=== PATIENT | female | born 2000 | race Caucasian/White ===

== ENCOUNTER → 2019-05-03 | Outpatient (CLI) | payer OTHER ==
[2019-05-03 14:29] VITALS: BP 127/92; PULSE 89; TEMP 98.7; BMI 43.4
[2019-05-03 15:31] LABS: HCT 37.2 % (34.0-46.0); HGB 12.5 gm/dL (11.4-16.0); MCH 28.7 pg (25.0-35.0); MCHC 33.7 g/dL (31.0-37.0); MCV 85.1 fL (80.0-100.0); Mean Platelet Volume 6.6; Platelet Count 297 k/uL (150-450); RBC 4.37 m/uL (3.80-5.40); WBC 9.7 k/uL (4.0-11.0)
[2019-05-03 19:43] LABS: Ferritin 35.3 ng/mL (10.0-291.0)
[2019-05-03 19:45] LABS: % Iron Saturation 7.85 (12.00-45.00); African American GFR (CKD) 144.6 (60.0-200.0); Albumin 4.6 g/dL (3.80-4.90); Albumin/Globulin Ratio 1.92 (1.60-3.17); Anion Gap 10.6 mmol/L (4.00-12.00); BUN/Creat Ratio 17.14 Ratio (12.00-20.00); Calcium 10.1 mg/dL (8.7-10.3); Carbon Dioxide 26.4 mmol/L (21.6-31.8); Globulin 2.4 g/dL (1.6-3.3); Non-African American GFR(CKD) 124.7 (60.0-200.0); Potassium 4.1 mmol/L (3.5-5.5); Total Bilirubin 0.2 mg/dL (0.2-1.2)
--- NOTE | 2019-05-03 21:07 | P.HPBAR ---
Bariatric H&P - History & Physicial H&P Date: 05/03/19 History & Physicial: Visit/CC: initial clinic visit Patient initial contact: Initial weight: Initial weight in pounds: Height: 5 ft 3.5 in Initial BMI: Last weight: Current weight: 112.945 kg Current weight in pounds: 249.00 Current BMI: 43.4 [place] body weight (based on NIH guidelines): 53.297 kg Excess body weight loss: The patient is a 18 year-old F who presents for Bariatric Assessment. 18-year-old female comes today complaining of morbid obesity. The patient states she is supper with us for the majority of her life thus far. Suffers from hypertension, asthma, GERD. She is interested in sleeve gastrectomy. Went to a recent seminar. BMI 43.4. Denies dysphagia. No DVT. Just now starting her supervised weight loss program. Review of Systems The patient denies any acute changes in vision or hearing, no dysphagia or odynophagia, no chest pain or shortness of breath, no dysuria or hematuria, no headache, no runny nose, no rectal bleeding or melena, no unexplained weight loss Past Medical History Past Medical History: Asthma, Hypertension Additional Past Medical History / Comment(s): PCOD History of Any Multi-Drug Resistant Organisms: None Reported Past Surgical History: No Surgical Hx Reported Past Anesthesia/Blood Transfusion Reactions: No Reported Reaction Smoking Status: Never smoker Surgical - Exam Vital Signs Temp Pulse BP 98.7 F 89 127/92 05/03/19 14:23 05/03/19 14:23 05/03/19 14:23 Physical exam: General: Well-developed, well-nourished HEENT: Normocephalic, sclerae nonicteric Abdomen: Nontender, nondistended Extremities: No edema Neuro: Alert and oriented Results - Labs 05/03/19 15:08 05/03/19 15:08 Abnormal Lab Results - Last 24 Hours (Table) 05/03/19 Range/Units 15:08 Iron 30 L (50-170) ug/dL % Saturation 7.85 L (12.00-45.00) ALT 51 H (8-44) U/L Vitamin D 25-Hydroxy 18.4 L (30.0-100.0) ng/mL Diabetes panel 05/03/19 Range/Units 15:08 Sodium 141 (135-145) mmol/L Potassium 4.1 (3.5-5.5) mmol/L Chloride 104 (96-109) mmol/L Carbon Dioxide 26.4 (21.6-31.8) mmol/L BUN 12.0 (9.0-27.0) mg/dL Creatinine 0.7 (0.6-1.5) mg/dL Glucose 86 (70-110) mg/dL Calcium 10.1 (8.7-10.3) mg/dL AST 31 (13-35) U/L ALT 51 H (8-44) U/L Alkaline Phosphatase 125 (41-126) U/L Total Protein 7.0 (6.2-8.2) g/dL Albumin 4.60 (3.80-4.90) g/dL Thyroid panel 05/03/19 Range/Units 15:08 TSH 3.660 (0.350-5.500) uIU/mL Calcium panel 05/03/19 Range/Units 15:08 Calcium 10.1 (8.7-10.3) mg/dL Albumin 4.60 (3.80-4.90) g/dL Pituitary panel 05/03/19 Range/Units 15:08 Sodium 141 (135-145) mmol/L Potassium 4.1 (3.5-5.5) mmol/L Chloride 104 (96-109) mmol/L Carbon Dioxide 26.4 (21.6-31.8) mmol/L BUN 12.0 (9.0-27.0) mg/dL Creatinine 0.7 (0.6-1.5) mg/dL Glucose 86 (70-110) mg/dL Calcium 10.1 (8.7-10.3) mg/dL TSH 3.660 (0.350-5.500) uIU/mL Adrenal panel 05/03/19 Range/Units 15:08 Sodium 141 (135-145) mmol/L Potassium 4.1 (3.5-5.5) mmol/L Chloride 104 (96-109) mmol/L Carbon Dioxide 26.4 (21.6-31.8) mmol/L BUN 12.0 (9.0-27.0) mg/dL Creatinine 0.7 (0.6-1.5) mg/dL Glucose 86 (70-110) mg/dL Calcium 10.1 (8.7-10.3) mg/dL Total Bilirubin 0.2 (0.2-1.2) mg/dL AST 31 (13-35) U/L ALT 51 H (8-44) U/L Alkaline Phosphatase 125 (41-126) U/L Total Protein 7.0 (6.2-8.2) g/dL Albumin 4.60 (3.80-4.90) g/dL Bariatric Assessment & Plan (1) Morbid obesity with BMI of 40.0-44.9, adult Narrative/Plan: 18-year-old female suffering from hypertension and asthma and reflux. Options reviewed in detail with the patient. She remains interested in sleeve gastrectomy. We'll continue supervised weight loss program. Plan EGD in approximately 4 months. Likely will proceed with sleeve gastrectomy following that. Status: Acute Bariatric Checklist Checklist: Plan: Checklist: EGD: 1. Hiatal hernia: 2. H. Pylori: HgbA1c: Vitamin D: Smoking: Never smoker Primary care physician referral: Psychiatry clearance: Cardiology clearance: Sleep study: Diet journal: VTE risk score: VTE risk level: Rehab needs at discharge:
== END | disposition home or self-care (01) ==
LOC: BARWHC3 14:03 → EDAGE 15:00
PROVIDERS: ATTEND Surgery
DX: E66.01 Morbid (severe) obesity due to excess calories (principal); I10 Essential (primary) hypertension; J45.909 Unspecified asthma, uncomplicated; K21.9 Gastro-esophageal reflux disease without esophagitis; Z68.41 Body mass index [BMI] 40.0-44.9, adult; D50.8 Other iron deficiency anemias; E44.0 Moderate protein-calorie malnutrition; E55.9 Vitamin D deficiency, unspecified
CPT/HCPCS: 80053; 82728; 83540; 83550; 84443; 85027; 82306; 83036; 93005; 36415; G0463; 99201

== ENCOUNTER 2019-08-24 08:38 | Day surgery (SDC) | payer OTHER ==
[2019-08-22 09:47] VITALS: BMI 42.9
[2019-08-24 08:59] VITALS: TEMP 97.3
[2019-08-24 10:39] VITALS: BP 132/82; PULSE 92; RESP 18
== END 2019-08-24 11:34 | disposition home or self-care (01) ==
LOC: ORWHC2ENDO 08:38
PROVIDERS: ATTEND Surgery
DX: K29.50 Unspecified chronic gastritis without bleeding (principal); K21.0 Gastro-esophageal reflux disease with esophagitis; K44.9 Diaphragmatic hernia without obstruction or gangrene; I10 Essential (primary) hypertension; J45.909 Unspecified asthma, uncomplicated; F39 Unspecified mood [affective] disorder; F41.9 Anxiety disorder, unspecified; E28.2 Polycystic ovarian syndrome; Z79.899 Other long term (current) drug therapy; Z91.048 Other nonmedicinal substance allergy status
CPT/HCPCS: 81025; 88305; 43239; J2001; J2704

== ENCOUNTER → 2019-11-12 | Outpatient (CLI) | payer OTHER ==
[2019-11-12 11:47] VITALS: BMI 42.5
== END | disposition home or self-care (01) ==
LOC: BARWHC3 08:50
PROVIDERS: ATTEND Surgery
DX: E66.01 Morbid (severe) obesity due to excess calories (principal); Z68.41 Body mass index [BMI] 40.0-44.9, adult
CPT/HCPCS: 97804

== ENCOUNTER → 2019-11-13 | Outpatient (CLI) | payer OTHER ==
[2019-11-13 13:26] VITALS: BP 134/96; PULSE 88; RESP 16; TEMP 97.9; BMI 42.5
--- NOTE | 2019-11-13 15:24 | P.BASOAP ---
Subjective Progress Note Date: 11/13/19 Principal diagnosis: Morbid obesity Patient returns for evaluation. Patient is preop and underwent recent EGD in August. Patient was found to have a moderate hiatal hernia. She is not scheduled for her sleeve gastrectomy yet. Psychiatric evaluate tomorrow. Last PCP visit later this month. Her wedding is in March. Applications with history of hypertension and asthma and reflux. Doing well on antiacids that were started after EGD. No further reflux presently. Objective - Vital Signs Vital signs: Vital Signs Temp 97.9 F 11/13/19 13:24 Pulse 88 11/13/19 13:24 Resp 16 11/13/19 13:24 BP 134/96 11/13/19 13:24 Pulse Ox Intake & Output 11/12/19 11/13/19 11/13/19 18:59 06:59 18:59 Weight 110.677 kg - Exam Abdomen: Soft, nontender, nondistended Assessment/Plan (1) Morbid obesity with BMI of 40.0-44.9, adult Narrative/Plan: 19-year-old female with morbid obesity and associated comorbidities. We'll proceed with laparoscopic sleeve gastrectomy with repair hiatal hernia in the next several weeks. The risks of bleeding, infection, stenosis, stricture, leak, abscess, fistula formation, peritonitis, poor weight loss, reflux, vomiting, conversion to an open procedure, aborting sleeve gastrectomy, MS, PE, DVT, and were discussed. The patient understands and wishes to proceed. Plan: Date: 11/13/19 Initial Weight: Initial BMI: Current Weight: 110.677 kg Current BMI: 42.5 Type of Surgery: Total Volume in Band: Previous Volume: Volume Removed: Volume Added: Band Size:
== END | disposition home or self-care (01) ==
LOC: BARWHC3 13:06
PROVIDERS: ATTEND Surgery
DX: E66.01 Morbid (severe) obesity due to excess calories (principal); Z68.41 Body mass index [BMI] 40.0-44.9, adult; K44.9 Diaphragmatic hernia without obstruction or gangrene
CPT/HCPCS: 99211

== ENCOUNTER → 2020-03-04 | Outpatient (CLI) | payer OTHER ==
[2020-03-04 10:48] LABS: Basophils # (A) 0.1 k/uL (0-0.2); Basophils % (A) 1 %; Eosinophils # (A) 0.4 k/uL (0-0.7); Eosinophils % (A) 4 %; HCT 36.6 % (34.0-46.0); HGB 12.1 gm/dL (11.4-16.0); Lymphocytes # (A) 2.2 k/uL (1.0-4.8); Lymphocytes % (A) 24 %; MCH 28.3 pg (25.0-35.0); MCHC 33.1 g/dL (31.0-37.0); MCV 85.5 fL (80.0-100.0); Mean Platelet Volume 8.5; Monocytes # (A) 0.3 k/uL (0-1.0); Monocytes % (A) 4 %; Neutrophils # (A) 6.1 k/uL (1.3-7.7); Neutrophils % (A) 66 %; Platelet Count 243 k/uL (150-450); RBC 4.28 m/uL (3.80-5.40); WBC 9.2 k/uL (3.8-10.6)
[2020-03-04 11:00] LABS: ALT 23 U/L (4-34); AST 26 U/L (14-36); African American GFR (CKD) >90 (>60 ml/min/1.73 sqM); Albumin 4.4 g/dL (3.5-5.0); Alkaline Phosphatase 72 U/L (38-126); Anion Gap 9 mmol/L; Blood Urea Nitrogen 20 mg/dL (7-17); Calcium 9.9 mg/dL (8.4-10.2); Carbon Dioxide 26 mmol/L (22-30); Chloride 103 mmol/L (98-107); Glucose 99 mg/dL (74-99); Non-African American GFR(CKD) >90 (>60 ml/min/1.73 sqM); Potassium 4.3 mmol/L (3.5-5.1); Sodium 138 mmol/L (137-145); Total Bilirubin 0.4 mg/dL (0.2-1.3); Total Protein 7.6 g/dL (6.3-8.2)
== END | disposition home or self-care (01) ==
LOC: LABWHC1 10:16
PROVIDERS: ATTEND Surgery
DX: Z01.818 Encounter for other preprocedural examination (principal)
CPT/HCPCS: 36415; 80053; 85025

== ENCOUNTER 2020-03-07 06:56 | Inpatient (IN) | payer OTHER ==
[~2020-03-07 06:56] MED LIST: ACETAMINOPHEN TAB 500 MG TAB PO ONE; DEXAMETHASONE SOD PHOSPHATE 10 MG/ML 1 ML VIAL IV ONE; ENOXAPARIN 40 MG/0.4 ML SYRINGE SQ ONE; LIDOCAINE 1% (10MG/ML) FOR IV START INTRADERMA PRN; MIDAZOLAM 2 MG/2 ML VIAL IV PRN; ONDANSETRON 4 MG/2 ML VIAL IVP ONE
[2020-03-07] MEDS: LACTATED RINGERS 1,000 ML IV SCH (07:38)
--- NOTE | 2020-03-07 07:51 | P.GSHP ---
History of Present Illness H&P Date: 03/07/20 Chief Complaint: Morbid obesity, hiatal hernia 19-year-old female here today for elective sleeve gastrectomy. Patient was seen in the office initially in April of last year. Patient with history of hypertension and asthma GERD. Recent EGD showed gastritis, esophagitis, and moderate hiatal hernia. Initial BMI 43.4. Denies history of DVT or dysphagia. Past Medical History Past Medical History: Asthma, GERD/Reflux, Hypertension Additional Past Medical History / Comment(s): PCOS History of Any Multi-Drug Resistant Organisms: None Reported Past Surgical History: No Surgical Hx Reported Additional Past Surgical History / Comment(s): EGD Past Anesthesia/Blood Transfusion Reactions: Motion Sickness Smoking Status: Never smoker - Past Family History Mother Family Medical History: No Reported History Medications and Allergies Home Medications Medication Instructions Recorded Confirmed Type Labetalol [Trandate] 200 mg PO BID 04/24/19 03/03/20 History Medroxyprogesterone Acetate 5 mg PO DAILY 04/24/19 03/03/20 History [Provera] Montelukast [Singulair] 10 mg pe PO DAILY 04/24/19 03/03/20 History buPROPion HCL [Wellbutrin SR] 150 mg PO DAILY 04/24/19 03/03/20 History Omeprazole [PriLOSEC] 20 mg PO -BRKFST #90 cap 08/24/19 03/03/20 Rx Albuterol Inhaler [Ventolin Hfa 2 puff INHALATION RT-QID PRN 03/03/20 03/07/20 History Inhaler] Albuterol Nebulized [Ventolin 2.5 mg INHALATION Q6H PRN 03/03/20 03/07/20 History Nebulized] Loratadine [Claritin] 10 mg PO DAILY 03/03/20 03/03/20 History Allergies Allergy/AdvReac Type Severity Reaction Status Date / Time mold Allergy Dyspnea Verified 03/03/20 15:04 Surgical - Exam Physical exam: General: Well-developed, well-nourished HEENT: Normocephalic, sclerae nonicteric Abdomen: Nontender, nondistended Extremities: No edema Neuro: Alert and oriented Assessment and Plan (1) Morbid obesity with BMI of 40.0-44.9, adult Narrative/Plan: Will proceed with laparoscopic sleeve gastrectomy with repair hiatal hernia. The risks of bleeding, infection, stenosis, stricture, leak, abscess, fistula formation, peritonitis, poor weight loss, reflux, vomiting, conversion to an open procedure, aborting sleeve gastrectomy, ME, PE, DVT, and were discussed. The patient understands and wishes to proceed. Current Visit: No Status: Acute Code(s): E66.01 - MORBID (SEVERE) OBESITY DUE TO EXCESS CALORIES; Z68.41 - BODY MASS INDEX (BMI) 40.0-44.9, ADULT SNOMED Code(s): 643169604
[2020-03-07] MEDS ORDERED: ROCURONIUM 10 MG/ML (5 ML VIAL) IV ONE (09:10)
[2020-03-07] MEDS ORDERED: MIDAZOLAM 2 MG/2 ML VIAL ONE (09:10)
[2020-03-07] MEDS ORDERED: GLYCOPYRROLATE 0.2 MG/ML 2 ML VIAL ONE (09:10)
[2020-03-07] MEDS ORDERED: NEOSTIGMINE 1 MG/ML 10 ML VIAL ONE (09:10)
[2020-03-07] MEDS ORDERED: ONDANSETRON 4 MG/2 ML VIAL ONE (09:10)
[2020-03-07] MEDS ORDERED: PROPOFOL 10 MG/ML 20 ML VIAL IV ONE (09:10)
[2020-03-07] MEDS ORDERED: SUCCINYLCHOLINE CHLORIDE 100 MG/5 ML SYR IV ONE (09:10)
[2020-03-07] MEDS ORDERED: fentaNYL (PF) 50 MCG/ML 2 ML AMP ONE (09:10)
[2020-03-07] MEDS ORDERED: HYDROmorphone (PF) 1 MG/ML ONE (09:10)
[2020-03-07] MEDS ORDERED: LIDOCAINE 1% INJ 10MG/ML (20 ML MDV) ONE (09:10)
[2020-03-07] MEDS ORDERED: BUPIVACAINE (PF) 0.25% 30 ML VIAL SQ ONE ×2 (09:47→09:51)
[2020-03-07] MEDS ORDERED: LACTATED RINGERS 1,000 ML IV ONE (09:51)
[2020-03-07] MEDS: HYDROmorphone 0.5 MG/0.5 ML SYRINGE IVP PRN ×5 (10:55→12:25)
[2020-03-07] MEDS ORDERED: KETOROLAC 15 MG/ML 1 ML VIAL IVP ONE (11:10)
[2020-03-07] MEDS ORDERED: NALOXONE 0.4 MG/ML 1 ML VIAL IV PRN (11:29)
--- NOTE | 2020-03-07 11:37 | P.OP ---
Date of Procedure: 03/07/20 Procedure(s) Performed: PREOPERATIVE DIAGNOSIS: Morbid obesity, GERD, hypertension, asthma, hiatal hernia POSTOPERATIVE DIAGNOSIS: Same PROCEDURE: Laparoscopic sleeve gastrectomy with repair hiatal hernia SURGEON: Es EBL: Minimal ANESTHESIA: General COMPLICATIONS: None OPERATIVE PROCEDURE: Patient was placed in the operating table in the supine position. She was placed under general anesthesia at that time. The abdomen was prepped and draped in sterile fashion after the patient was placed in lithot arcelia. A 5 mm optical trocar was used to enter the abdominal cavity in the left upper quadrant. Insufflation took place to 15 millimeters mercury. An additional right subxiphoid 5 mm trocar was then placed under direct relation and then removed. 2 additional 5 mm trochars were placed in the right upper quadrant and left upper quadrant under direct visualization and a 15 mm trocar in the infraumbilical location. The liver was retracted using a medium Everett liver retractor through the right subxiphoid trocar site. The hiatus was inspected. The patient had a moderate sized hiatal hernia. Circumferentially the phrenoesophageal ligament was incised identifying the actual defect. The right diaphragmatic crura was well visualized. I was able to bluntly dissect and visualize the left diaphragmatic crura. At that point I moved to the mid aspect of the greater curvature the stomach. The short gastric vasculature was divided using a LigaSure device proximally. I then switched and divided the short gastrics distally to a 3-4 cm from the pylorus. The dissection took place up to the left diaphragmatic crura at that point. The posterior short gastrics were likewise divided using the LigaSure device. From this view we were able to fully dissect the left crura. Once the stomach was fully mobilized the blunt tipped 40-Slovenian bougie dilator was advanced into the stomach and advanced all the way to the prepyloric location. A black echelon 60 stapler with seam guard was utilized and fired tangentially across the antrum taking care to avoid narrowing at the incisura angularis. Subsequent firings of the stapler took place. A total of 4 green echelon 60 staplers with seam guard took place proximally staying on the outer edge of our dilator. Once we reached the most proximal portion of the stomach a single firing of the gold echelon 60 stapler without seen guard took place. The oral gastric tube was reinserted. The stomach was insufflated with approximately 100 mL of methylene blue. No evidence of leak or obstruction was seen. The hiatus was then addressed once again. 2 separate 2-0 Ethibond sutures were used to reapproximate the crura posteriorly. This adequately closed the diaphragmatic hernia. A single small area of bleeding along the staple line was noted and controlled using a 12 mm clipper. Tisseel fibrin glue was then sprayed along the entire length of the staple line. No bleeding was identified. The distal aspect of the sleeve was then reapproximated to the gastrosplenic and gastrocolic ligament using a short running 20 strata fix suture. This was done to prevent kinking or twisting of the sleeve. The stomach remnant was removed from the 15 mm trocar site without difficulty. The fascia at the 15 more site was closed using interrupted 0 Vicryl sutures with the laparoscopic suture passer and Pérez Ulysses technique. The insufflation was evacuated. The skin at all 5 incisions were closed using 4-0 Monocryl sutures. Skin glue was then applied. DISPOSITION: Stable to recovery room
[2020-03-07] MEDS ORDERED: fentaNYL (PF) 50 MCG/ML 2 ML AMP IVP ONE (12:35)
[2020-03-07] MEDS: 0.9% NACL WITH KCL 20 MEQ/L 1,000 ML IV SCH ×2 (13:29→20:19)
[2020-03-07] MEDS: SIMETHICONE 40 MG/0.6 ML DROPS 2,000 MG/30 ML BOTTLE PO PRN (13:30)
[2020-03-07] MEDS ORDERED: ACETAMINOPHEN IV (For NPO) 1,000 MG in EMPTY BAG 1 BAG IVPB ONE (14:00)
[2020-03-07] MEDS: HYDROmorphone 1 MG/ML 1 ML SYRINGE IVP PRN ×4 (14:20→23:41)
[2020-03-07] MEDS: ONDANSETRON 4 MG/2 ML VIAL IVP PRN (14:20)
[2020-03-07] MEDS: ALBUTEROL NEBULIZED 2.5 MG/3 ML INHALATION SCH ×3 (14:25→18:57)
[2020-03-07 16:43] VITALS: BMI 37.3
[2020-03-07] MEDS: ENOXAPARIN 40 MG/0.4 ML SYRINGE SQ SCH (20:18)
--- NOTE | 2020-03-07 22:23 | P.CONS ---
History of Present Illness - Reason for Consult Consult date: 03/07/20 Medical management - Chief Complaint Status post gastric sleeve surgery - History of Present Illness Patient is a 19-year-old male with a known history of hypertension, asthma, GERD and obesity with BMI 37.3 was admitted to the hospital for elective sleeve gastrectomy. Patient had recent EGD showed gastritis, esophagitis and moderate hiatal hernia.Patient tolerated the procedure very well. Currently lying in the bed comfortably. No complaints of abdominal pain. Patient does have nausea. Currently nothing by mouth. No headache or dizziness or lightheadedness. No fever no chills. No complaints of shortness of breath. Review of Systems Constitutional: Patient denies any fever or chills . No generalized weakness or weight loss. Abdomen: Patient denied vomiting and diarrhea. abdominal discomfort Cardiovascular: Patient denies any chest pain or short of breath no palpitations. Respiratory: patient denied any cough is from production. No shortness of breath Neurologic: Patient denied any numbness or tingling headache. Musculoskeletal: Patient denies any complaints of joint swelling or deformity. Skin: Negative Psychiatric: Negative Endocrine: No heat or cold intolerance. No recent weight gain. Genitourinary: No dysuria or hematuria. All other 14 point ROS negative except the above Past Medical History Past Medical History: Asthma, GERD/Reflux, Hypertension Additional Past Medical History / Comment(s): PCOS History of Any Multi-Drug Resistant Organisms: None Reported Past Surgical History: Bariatric Surgery Additional Past Surgical History / Comment(s): EGD, LAPROSCOPIC SLEEVE Past Anesthesia/Blood Transfusion Reactions: No Reported Reaction, Motion Sickness Past Psychological History: Anxiety Smoking Status: Never smoker Past Alcohol Use History: Rare Past Drug Use History: None Reported - Past Family History Mother Family Medical History: No Reported History Medications and Allergies Home Medications Medication Instructions Recorded Confirmed Type Labetalol [Trandate] 200 mg PO BID 04/24/19 03/03/20 History Medroxyprogesterone Acetate 5 mg PO DAILY 04/24/19 03/03/20 History [Provera] Montelukast [Singulair] 10 mg pe PO DAILY 04/24/19 03/03/20 History buPROPion HCL [Wellbutrin SR] 150 mg PO DAILY 04/24/19 03/03/20 History Omeprazole [PriLOSEC] 20 mg PO -DIT #90 cap 08/24/19 03/03/20 Rx Albuterol Inhaler [Ventolin Hfa 2 puff INHALATION RT-QID PRN 03/03/20 03/07/20 History Inhaler] Albuterol Nebulized [Ventolin 2.5 mg INHALATION Q6H PRN 03/03/20 03/07/20 History Nebulized] Loratadine [Claritin] 10 mg PO DAILY 03/03/20 03/03/20 History Allergies Allergy/AdvReac Type Severity Reaction Status Date / Time mold Allergy Dyspnea Verified 03/03/20 15:04 Physical Exam Vitals: Vital Signs Temp Pulse Pulse Resp BP Pulse Ox 03/07/20 14:10 97.6 F 81 18 136/86 93 L 03/07/20 13:15 93 L 03/07/20 13:14 93 18 152/92 91 L 03/07/20 12:50 78 16 148/78 95 03/07/20 12:30 80 16 147/80 95 03/07/20 12:15 84 16 140/85 97 03/07/20 12:00 84 16 125/80 98 03/07/20 11:46 89 18 133/80 100 03/07/20 11:45 74 16 142/82 100 03/07/20 11:31 97 F L 89 18 136/83 99 03/07/20 07:50 97.9 F 75 16 151/74 98 Intake and Output 03/07/20 03/07/20 03/07/20 06:59 14:59 22:59 Intake Total 1750 Output Total 20 Balance 1730 Intake: IV 1750 Output: Estimated Blood Loss 20 Other: Weight 98.7 kg PHYSICAL EXAMINATION: Patient is lying in the bed comfortably, no acute distress, awake alert and oriented.. HEENT: Normocephalic. Neck is supple. Pupils reactive. Nostrils clear. Oral cavity is moist. Ears reveal no drainage. Neck reveals no JVD, carotid bruits, or thyromegaly. CHEST EXAMINATION: Trachea is central. Symmetrical expansion. Lung kwong clear to auscultation and percussion. CARDIAC: Normal S1, S2 with no gallops. No murmurs ABDOMEN: Soft. Bowel sounds present. No organomegaly. No abdominal bruits. Extremities: reveal no edema. No clubbing or cyanosis Neurologically awake, alert, oriented x3 with well-coordinated movements. No focal deficits noted Skin: No rash or skin lesions. Psychiatric: Coperative. Nonsuicidal Musculoskeletal: No joint swelling or deformity. Normal range of motion. Assessment and Plan Assessment: Status post gastric sleeve surgery postoperative day 0. Obesity with BMI 37.3 Asthma not in exacerbation GERD DVT prophylaxis. Plan: Patient is being continued IV hydration and nothing by mouth. Symptomatic management for nausea and also abdominal pain. Replace electrolytes and follow- up CBC and BMP. Continue with current management and further recommendations based on the clinical course. And there is incentive spirometry and ambulation. Thank you for your consult.
[2020-03-08] MEDS: HYDROmorphone 1 MG/ML 1 ML SYRINGE IVP PRN ×4 (02:58→19:19)
[2020-03-08] MEDS: 0.9% NACL WITH KCL 20 MEQ/L 1,000 ML IV SCH (02:58)
[2020-03-08] MEDS: diphenhydrAMINE 50 MG/ML 1 ML VIAL IVP PRN ×2 (03:42→12:16)
[2020-03-08] MEDS: LACTATED RINGERS 1,000 ML IV SCH (04:21)
[2020-03-08 06:41] LABS: Basophils % (A) 0 %; Eosinophils # (A) 0.1 k/uL (0-0.7); Eosinophils % (A) 1 %; HCT 35.9 % (34.0-46.0); HGB 11.4 gm/dL (11.4-16.0); Lymphocytes # (A) 2.1 k/uL (1.0-4.8); Lymphocytes % (A) 16 %; MCHC 31.7 g/dL (31.0-37.0); MCV 85.4 fL (80.0-100.0); Mean Platelet Volume 8.5; Monocytes # (A) 0.5 k/uL (0-1.0); Monocytes % (A) 4 %; Neutrophils # (A) 10.3 k/uL (1.3-7.7); Neutrophils % (A) 78 %; Platelet Count 205 k/uL (150-450); RDW 13.2 % (11.5-15.5); WBC 13.1 k/uL (3.8-10.6)
[2020-03-08] MEDS: ALBUTEROL NEBULIZED 2.5 MG/3 ML INHALATION SCH ×5 (07:23→19:57)
--- NOTE | 2020-03-08 08:52 | FL ---
EXAMINATION TYPE: FL UGI DATE OF EXAM: 03/08/2020 LIMITED UGI: CLINICAL HISTORY: Morbid Obesity, hiatal hernia. Status post Sathya fundoplication and gastric sleev e surgery yesterday. TECHNIQUE: Limited upper GI/esophagram is performed utilizing 20 oz of Isovue-370. A total of 14 sec onds of fluoroscopic time was utilized during procedure. 21 spot images saved to PACS. COMPARISON: None. FINDINGS: The patient swallowed contrast without difficulty or delay. Esophageal peristalsis and mo tility are within normal limits. There is good flow of contrast along the diaphragmatic hiatus into proximal stomach and subsequent mild delay in flow into gastric sleeve through proximal anastomosis. There is mild delay in flow from distal anastomosis and sleeve into pylorus and duodenal sweep. Patie nt remains asymptomatic. There is no evidence of contrast extravasation to suggest leak. No persisten t fixed hiatal hernia noted. IMPRESSION: No evidence of leak or significant obstruction status post gastric sleeve surgery yesterd ay. No residual fixed hernia noted.
[2020-03-08] MEDS: PANTOPRAZOLE 40 MG/10 ML VIAL IV SCH (08:54)
[2020-03-08] MEDS: ENOXAPARIN 40 MG/0.4 ML SYRINGE SQ SCH ×2 (08:55→19:19)
[2020-03-08] MEDS: ONDANSETRON 4 MG/2 ML VIAL IVP PRN (08:55)
[2020-03-08] MEDS: KETOROLAC 15 MG/ML 1 ML VIAL IVP PRN ×3 (09:29→23:54)
[2020-03-08] MEDS: 1: MVI, ADULT NO.4 WITH VIT K 10 ML, THIAMINE 100 MG, FOLIC ACID 1 MG, POTASSIUM CHLORID IV SCH ×18 (09:29→23:56)
--- NOTE | 2020-03-08 10:41 | P.PN ---
Subjective Progress Note Date: 03/08/20 Principal diagnosis: Morbid obesity Patient complaining of nausea and some pain today. White blood cell count 13.1. Mild tachycardia. Upper GI shows no leak or obstruction. Objective - Vital Signs Vital signs: Vital Signs Temp 98.6 F 03/08/20 07:00 Pulse 111 H 03/08/20 07:00 Resp 16 03/08/20 07:00 BP 128/75 03/08/20 07:00 Pulse Ox 97 03/08/20 07:00 Intake & Output 03/07/20 03/08/20 03/08/20 18:59 06:59 18:59 Intake Total 1750 1860 Output Total 20 Balance 1730 1860 Weight 98.7 kg Intake: IV 1750 Intake, IV Titration 1860 Amount 0.9% NaCl with KCl 20 Meq 1800 /l 1,000 ml @ 150 mls/hr IV .Q6H40M SIMONE Rx#: [id number] Lactated Ringers 1,000 ml 60 @ 20 mls/hr IV .Q24H SIMONE Rx#:[id number] Output: Estimated Blood Loss 20 Other: Voiding Method Toilet Toilet # Voids 1 - Exam Abdomen: Soft, nondistended, incision site clean and dry, mild upper abdominal tenderness - Labs CBC & Chem 7: 03/08/20 06:19 Labs: Abnormal Lab Results - Last 24 Hours (Table) 03/08/20 Range/Units 06:19 WBC 13.1 H (3.8-10.6) k/uL Neutrophils # 10.3 H (1.3-7.7) k/uL Assessment and Plan (1) Morbid obesity with BMI of 40.0-44.9, adult Narrative/Plan: Patient doing fairly well. Begin clear liquids. Add Toradol for pain control. Ambulate. Current Visit: No Status: Acute Code(s): E66.01 - MORBID (SEVERE) OBESITY DUE TO EXCESS CALORIES; Z68.41 - BODY MASS INDEX (BMI) 40.0-44.9, ADULT SNOMED Code(s): 053371088
[2020-03-08 10:55] LABS: African American GFR (CKD) 160.3 (60.0-200.0); Anion Gap 11.9 mmol/L (4.00-12.00); Calcium 8.8 mg/dL (8.7-10.3); Carbon Dioxide 23.1 mmol/L (21.6-31.8); Magnesium 1.6 mg/dL (1.5-2.4); Non-African American GFR(CKD) 138.3 (60.0-200.0); Phosphorus 2.4 mg/dL (2.4-5.1); Potassium 4.1 mmol/L (3.5-5.5)
[2020-03-08] MEDS: ACETAMINOPHEN IV (For NPO) 1,000 MG in EMPTY BAG 1 BAG IVPB PRN ×2 (12:16→19:19)
[2020-03-08] MEDS: MAGNESIUM SULFATE-D5W PMX 1 GM in DEXTROSE/WATER 1 100ML.BAG IVPB SCH ×2 (16:34→17:37)
[2020-03-08] MEDS: SIMETHICONE 40 MG/0.6 ML DROPS 2,000 MG/30 ML BOTTLE PO PRN (16:49)
--- NOTE | 2020-03-08 21:21 | P.PN ---
Subjective Progress Note Date: 03/08/20 Principal diagnosis: Status post gastric sleeve surgery postoperative day 1. Patient is a 19-year-old male with a known history of hypertension, asthma, GERD and obesity with BMI 37.3 was admitted to the hospital for elective sleeve gastrectomy. Patient had recent EGD showed gastritis, esophagitis and moderate hiatal hernia.Patient tolerated the procedure very well. Currently lying in the bed comfortably. No complaints of abdominal pain. Patient does have nausea. Currently nothing by mouth. No headache or dizziness or lightheadedness. No fever no chills. No complaints of shortness of breath. 03/08/2020 Patient is currently lying in the bed comfortably. Abdominal pain is better with pain medications. Does have nausea. No episodes of vomiting. No bowel movement. Patient does have bowel sounds and passing flatus occasionally. No fever no chills. No headache or dizziness or lightheadedness. No chest pain or shortness of the. Laboratory data showed WBC 13.1 and hemoglobin 11.4, BUN 7.0 and creatinine 0.5 and magnesium 1.6 Current medications reviewed. Objective - Vital Signs Vital signs: Vital Signs Temp 98.6 F 03/08/20 14:44 Pulse 92 03/08/20 20:10 Resp 16 03/08/20 19:05 BP 126/84 03/08/20 14:44 Pulse Ox 99 03/08/20 14:44 Intake & Output 03/08/20 03/08/20 03/09/20 06:59 18:59 06:59 Intake Total 1860 100 Balance 1860 100 Intake: Intake, IV Titration 1860 100 Amount 0.9% NaCl with KCl 20 Meq 1800 /l 1,000 ml @ 150 mls/hr IV .Q6H40M SIMONE Rx#: [id number] Lactated Ringers 1,000 ml 60 @ 20 mls/hr IV .Q24H SIMONE Rx#:[id number] Magnesium Sulfate-D5w Pmx 100 1 gm In Dextrose/Water 1 100ml.bag @ 100 mls/hr IVPB Q1H SIMONE Rx#: [id number] Other: Voiding Method Toilet Toilet # Voids 1 2 2 - Exam PHYSICAL EXAMINATION: Patient is lying in the bed comfortably, no acute distress, awake alert and oriented.. HEENT: Normocephalic. Neck is supple. Pupils reactive. Nostrils clear. Oral cavity is moist. Ears reveal no drainage. Neck reveals no JVD, carotid bruits, or thyromegaly. CHEST EXAMINATION: Trachea is central. Symmetrical expansion. Lung kwong clear to auscultation and percussion. CARDIAC: Normal S1, S2 with no gallops. No murmurs ABDOMEN: Soft. Bowel sounds present. No organomegaly. No abdominal bruits. Extremities: reveal no edema. No clubbing or cyanosis Neurologically awake, alert, oriented x3 with well-coordinated movements. No focal deficits noted Skin: No rash or skin lesions. Psychiatric: Coperative. Nonsuicidal Musculoskeletal: No joint swelling or deformity. Normal range of motion. - Labs CBC & Chem 7: 03/08/20 06:19 03/08/20 06:19 Labs: Abnormal Lab Results - Last 24 Hours (Table) 03/08/20 03/08/20 Range/Units 06:19 06:19 WBC 13.1 H (3.8-10.6) k/uL Neutrophils # 10.3 H (1.3-7.7) k/uL BUN 7.0 L (9.0-27.0) mg/dL Creatinine 0.5 L (0.6-1.5) mg/dL Assessment and Plan Assessment: Status post gastric sleeve surgery postoperative day 1. Hypomagnesia. Mild leukocytosis likely secondary to postsurgical Obesity with BMI 37.3 Asthma not in exacerbation GERD DVT prophylaxis. Plan: Patient is being continued IV hydration. Patient is tolerating ice chips. Symptomatic management for nausea and also abdominal pain. Replace electrolytes and follow-up CBC and BMP. Continue with current management and further recommendations based on the clinical course. incentive spirometry and ambulation. We will continue to follow with you.
[2020-03-09] MEDS: HYDROmorphone 1 MG/ML 1 ML SYRINGE IVP PRN ×3 (01:42→20:30)
[2020-03-09] MEDS: LACTATED RINGERS 1,000 ML IV SCH (04:11)
[2020-03-09] MEDS: KETOROLAC 15 MG/ML 1 ML VIAL IVP PRN (05:56)
[2020-03-09] MEDS: SIMETHICONE 40 MG/0.6 ML DROPS 2,000 MG/30 ML BOTTLE PO PRN ×3 (07:26→17:51)
[2020-03-09 07:44] LABS: Basophils % (A) 0 %; Eosinophils # (A) 0.3 k/uL (0-0.7); Eosinophils % (A) 3 %; HCT 35.2 % (34.0-46.0); HGB 11.9 gm/dL (11.4-16.0); Lymphocytes # (A) 1.8 k/uL (1.0-4.8); Lymphocytes % (A) 19 %; MCH 29.1 pg (25.0-35.0); MCHC 33.8 g/dL (31.0-37.0); MCV 86.2 fL (80.0-100.0); Mean Platelet Volume 8.6; Monocytes # (A) 0.5 k/uL (0-1.0); Monocytes % (A) 5 %; Neutrophils # (A) 6.9 k/uL (1.3-7.7); Neutrophils % (A) 72 %; Platelet Count 225 k/uL (150-450); RBC 4.08 m/uL (3.80-5.40); RDW 13.5 % (11.5-15.5); WBC 9.6 k/uL (3.8-10.6)
[2020-03-09] MEDS ORDERED: ACETAMINOPHEN ORAL SUSP 160 MG/5 ML CUP PO PRN (07:49)
[2020-03-09] MEDS: ALBUTEROL NEBULIZED 2.5 MG/3 ML INHALATION SCH ×4 (07:57→19:56)
[2020-03-09] MEDS ORDERED: bisacodyL 5 MG TABLET.DR PO PRN (08:00)
[2020-03-09] MEDS: 1: MVI, ADULT NO.4 WITH VIT K 10 ML, THIAMINE 100 MG, FOLIC ACID 1 MG, POTASSIUM CHLORID IV SCH ×12 (09:05→20:29)
[2020-03-09] MEDS: ENOXAPARIN 40 MG/0.4 ML SYRINGE SQ SCH ×2 (09:06→19:38)
[2020-03-09] MEDS: PANTOPRAZOLE 40 MG/10 ML VIAL IV SCH (09:06)
[2020-03-09] MEDS: ACETAMINOPHEN ORAL SUSP 160 MG/5 ML CUP PO PRN ×2 (09:08→13:51)
--- NOTE | 2020-03-09 10:52 | P.PN ---
Subjective Progress Note Date: 03/09/20 Principal diagnosis: Morbid obesity Patient doing well today. Better than yesterday. Less nausea. Some cramps at times with drinking. Overall pain much improved. White blood cell count normal. Vitals are stable. Objective - Vital Signs Vital signs: Vital Signs Temp 98.3 F 03/09/20 07:32 Pulse 96 03/09/20 08:08 Resp 16 03/09/20 07:32 BP 127/82 03/09/20 07:32 Pulse Ox 98 03/09/20 07:32 Intake & Output 03/08/20 03/09/20 03/09/20 18:59 06:59 18:59 Intake Total 100 3921.2 915 Balance 100 3921.2 915 Intake: Intake, IV Titration 100 3921.2 915 Amount 0.9% NaCl with KCl 20 Meq 2100 /l 1,000 ml @ 150 mls/hr IV .Q6H40M [facility] Rx#: [id number] ACETAMINOPHEN IV (For NPO 800 ) 1,000 mg In Empty Bag 1 bag @ 400 mls/hr IVPB Q6HR PRN Rx#:[id number] Magnesium Sulfate-D5w Pmx 100 1 gm In Dextrose/Water 1 100ml.bag @ 100 mls/hr IVPB Q1H [facility] Rx#: [id number] Mvi, Adult No.4 with Vit 1021.2 915 K 10 ml Thiamine 100 mg Folic Acid 1 mg Potassium Chloride 20 meq In Sodium Chloride 0.9% 1, 000 ml @ 100 mls/hr IV . BY DURATION [facility] Rx#: [id number] Other: Voiding Method Toilet # Voids 2 2 - Exam Abdomen: Soft, nondistended, incisions clean and dry, mild tenderness - Labs CBC & Chem 7: 03/09/20 07:08 03/08/20 06:19 Labs: Abnormal Lab Results - Last 24 Hours (Table) 03/08/20 Range/Units 06:19 BUN 7.0 L (9.0-27.0) mg/dL Creatinine 0.5 L (0.6-1.5) mg/dL Assessment and Plan (1) Morbid obesity with BMI of 40.0-44.9, adult Narrative/Plan: Patient doing well today. Continue bariatric liquid diet. Ambulate. Possible discharge tomorrow. Current Visit: No Status: Acute Code(s): E66.01 - MORBID (SEVERE) OBESITY DUE TO EXCESS CALORIES; Z68.41 - BODY MASS INDEX (BMI) 40.0-44.9, ADULT SNOMED Code(s): 377568038
[2020-03-09] MEDS: HYOSCYAMINE ORAL DROPS 1.875 MG/15 ML BOTTLE PO PRN ×2 (12:59→17:51)
[2020-03-09] MEDS: diphenhydrAMINE 50 MG/ML 1 ML VIAL IVP PRN ×2 (16:36→21:47)
[2020-03-09] MEDS: ACETAMINOPHEN ORAL SUSP (PEDS) 3,840 MG/120 ML BOTTLE PO PRN (19:32)
--- NOTE | 2020-03-09 22:34 | P.PN ---
Subjective Progress Note Date: 03/09/20 Principal diagnosis: Status post gastric sleeve surgery postoperative day 1. Patient is a 19-year-old male with a known history of hypertension, asthma, GERD and obesity with BMI 37.3 was admitted to the hospital for elective sleeve gastrectomy. Patient had recent EGD showed gastritis, esophagitis and moderate hiatal hernia.Patient tolerated the procedure very well. Currently lying in the bed comfortably. No complaints of abdominal pain. Patient does have nausea. Currently nothing by mouth. No headache or dizziness or lightheadedness. No fever no chills. No complaints of shortness of breath. 03/08/2020 Patient is currently lying in the bed comfortably. Abdominal pain is better with pain medications. Does have nausea. No episodes of vomiting. No bowel movement. Patient does have bowel sounds and passing flatus occasionally. No fever no chills. No headache or dizziness or lightheadedness. No chest pain or shortness of the. Laboratory data showed WBC 13.1 and hemoglobin 11.4, BUN 7.0 and creatinine 0.5 and magnesium 1.6 03/09/2020 Patient states that she feels better today. No complaints of chest pain or shortness of breath. Some abdominal cramps and is passing flatus. No bowel movement today. Tolerating liquids. Pain is improved compared to yesterday. No other acute overnight issues. Laboratory data showed WBC 9.6 and hemoglobin 11.9 platelets 225 Current medications reviewed. Objective - Vital Signs Vital signs: Vital Signs Temp 97.9 F 03/09/20 15:00 Pulse 92 03/09/20 20:07 Resp 18 03/09/20 19:45 BP 123/82 03/09/20 15:00 Pulse Ox 100 03/09/20 15:00 Intake & Output 03/09/20 03/09/20 03/10/20 06:59 18:59 06:59 Intake Total 4921.2 915 Balance 4921.2 915 Intake: Intake, IV Titration 4921.2 915 Amount 0.9% NaCl with KCl 20 Meq 1000 /l 1,000 ml @ 100 mls/hr IV .BY DURATION [facility] Rx#: [id number] 0.9% NaCl with KCl 20 Meq 2100 /l 1,000 ml @ 150 mls/hr IV .Q6H40M [facility] Rx#: [id number] ACETAMINOPHEN IV (For NPO 800 ) 1,000 mg In Empty Bag 1 bag @ 400 mls/hr IVPB Q6HR PRN Rx#:[id number] Mvi, Adult No.4 with Vit 1021.2 915 K 10 ml Thiamine 100 mg Folic Acid 1 mg Potassium Chloride 20 meq In Sodium Chloride 0.9% 1, 000 ml @ 100 mls/hr IV . BY DURATION [facility] Rx#: [id number] Other: Voiding Method Toilet Toilet # Voids 2 3 - Exam PHYSICAL EXAMINATION: Patient is lying in the bed comfortably, no acute distress, awake alert and oriented.. HEENT: Normocephalic. Neck is supple. Pupils reactive. Nostrils clear. Oral cavity is moist. Ears reveal no drainage. Neck reveals no JVD, carotid bruits, or thyromegaly. CHEST EXAMINATION: Trachea is central. Symmetrical expansion. Lung kwong clear to auscultation and percussion. CARDIAC: Normal S1, S2 with no gallops. No murmurs ABDOMEN: Soft. Bowel sounds present. No organomegaly. No abdominal bruits. Extremities: reveal no edema. No clubbing or cyanosis Neurologically awake, alert, oriented x3 with well-coordinated movements. No focal deficits noted Skin: No rash or skin lesions. Psychiatric: Coperative. Nonsuicidal Musculoskeletal: No joint swelling or deformity. Normal range of motion. - Labs CBC & Chem 7: 03/09/20 07:08 03/08/20 06:19 Assessment and Plan Assessment: Status post gastric sleeve surgery postoperative day 2. Hypomagnesia. Mild leukocytosis likely secondary to postsurgical Obesity with BMI 37.3 Asthma not in exacerbation GERD DVT prophylaxis. Plan: Patient is being continued IV hydration. Patient is tolerating liquids. Symptomatic management for nausea and also abdominal pain. Continue with current management and further recommendations based on the clinical course. incentive spirometry and ambulation. We will continue to follow with you. Time with Patient: Greater than 30
[2020-03-10 02:33] VITALS: RESP 16
[2020-03-10] MEDS: ACETAMINOPHEN ORAL SUSP (PEDS) 3,840 MG/120 ML BOTTLE PO PRN ×2 (02:56→08:44)
[2020-03-10] MEDS: HYOSCYAMINE ORAL DROPS 1.875 MG/15 ML BOTTLE PO PRN (02:57)
[2020-03-10] MEDS: SIMETHICONE 40 MG/0.6 ML DROPS 2,000 MG/30 ML BOTTLE PO PRN (02:57)
[2020-03-10] MEDS: HYDROmorphone 1 MG/ML 1 ML SYRINGE IVP PRN (04:15)
[2020-03-10] MEDS: diphenhydrAMINE 50 MG/ML 1 ML VIAL IVP PRN (04:15)
[2020-03-10] MEDS: LACTATED RINGERS 1,000 ML IV SCH (06:06)
[2020-03-10 07:42] VITALS: BP 105/69; TEMP 99
[2020-03-10] MEDS: PANTOPRAZOLE 40 MG/10 ML VIAL IV SCH (08:43)
[2020-03-10] MEDS: KETOROLAC 15 MG/ML 1 ML VIAL IVP PRN (08:43)
[2020-03-10] MEDS: ENOXAPARIN 40 MG/0.4 ML SYRINGE SQ SCH (08:44)
[2020-03-10] MEDS: ALBUTEROL NEBULIZED 2.5 MG/3 ML INHALATION SCH ×2 (08:45→12:11)
[2020-03-10] MEDS: 1: MVI, ADULT NO.4 WITH VIT K 10 ML, THIAMINE 100 MG, FOLIC ACID 1 MG, POTASSIUM CHLORID IV SCH ×6 (08:47)
[2020-03-10 08:48] VITALS: PULSE 88
--- NOTE | 2020-03-10 12:38 | P.DS ---
Providers Date of admission: 03/07/20 06:56 Expected date of discharge: 03/10/20 Attending physician: Henry Suggs Consults: 03/07/20 11:29 Consult Physician Routine Consulting Provider: Marci Padilla Consult Reason/Comments: Medical management Do you want consulting provider notified?: Yes Primary care physician: Thom Vergara Hospital Course: Discharge diagnosis 1. Morbid obesity 2. Hiatal hernia 3. GERD 4. Hypertension 5. Asthma Hospital course This is a 19-year-old female who presented to the hospital for an elective sleeve gastrectomy. She has a history of morbid obesity, hiatal hernia, GERD, hypertension and asthma. Recent EGD showed gastritis, esophagitis, and moderate hiatal hernia. Initial BMI 43.4. Patient is status post laparoscopic sleeve gastrectomy with repair of hiatal hernia with Dr. Suggs. Patient tolerated surgery well. Upper GI shows no evidence of leak or significant obstruction. She is tolerating diet. She reports having flatus. She reports her pain is controlled. She has been up and ambulating. She is afebrile. Patient is stable for discharge. Physician Employee Placement Specialist note has been reviewed by physician. Signing provider agrees with the documented findings, assessment, and plan of care. Patient Condition at Discharge: Stable Plan - Discharge Summary Discharge Rx Participant: No New Discharge Prescriptions: New bisacodyL [Dulcolax] 5 mg PO DAILY PRN #10 tablet.dr GONZALEZ Reason: Constipation Simethicone 40 mg/0.6 ml Drops [Mylicon Drops] 40 mg PO PCHS PRN #30 ml PRN Reason: Gas Omeprazole [PriLOSEC] 40 mg PO DAILY #30 capsule. Ondansetron Odt [Zofran Odt] 4 mg PO Q8HR PRN #9 tab PRN Reason: Nausea Hydrocodone/Acetaminophen [Olds 5-325] 1 tab PO Q6HR PRN 3 Days #12 tab PRN Reason: Pain Continue Montelukast [Singulair] 10 mg pe PO DAILY buPROPion HCL [Wellbutrin SR] 150 mg PO DAILY Medroxyprogesterone Acetate [Provera] 5 mg PO DAILY Loratadine [Claritin] 10 mg PO DAILY Albuterol Nebulized [Ventolin Nebulized] 2.5 mg INHALATION Q6H PRN PRN Reason: Dyspnea Albuterol Inhaler [Ventolin Hfa Inhaler] 2 puff INHALATION RT-QID PRN PRN Reason: Dyspnea Discontinued Omeprazole [PriLOSEC] 20 mg PO AC-BRKFST #90 cap No Action Labetalol [Trandate] 200 mg PO BID Discharge Medication List Labetalol [Trandate] 200 mg PO BID 04/24/19 [History] Medroxyprogesterone Acetate [Provera] 5 mg PO DAILY 04/24/19 [History] Montelukast [Singulair] 10 mg pe PO DAILY 04/24/19 [History] buPROPion HCL [Wellbutrin SR] 150 mg PO DAILY 04/24/19 [History] Albuterol Inhaler [Ventolin Hfa Inhaler] 2 puff INHALATION RT-QID PRN 03/03/20 [History] Albuterol Nebulized [Ventolin Nebulized] 2.5 mg INHALATION Q6H PRN 03/03/20 [History] Loratadine [Claritin] 10 mg PO DAILY 03/03/20 [History] Hydrocodone/Acetaminophen [Olds 5-325] 1 tab PO Q6HR PRN 3 Days #12 tab 03/10/20 [Rx] Omeprazole [PriLOSEC] 40 mg PO DAILY #30 capsule. 03/10/20 [Rx] Ondansetron Odt [Zofran Odt] 4 mg PO Q8HR PRN #9 tab 03/10/20 [Rx] Simethicone 40 mg/0.6 ml Drops [Mylicon Drops] 40 mg PO PCHS PRN #30 ml 03/10/20 [Rx] bisacodyL [Dulcolax] 5 mg PO DAILY PRN #10 tablet. 03/10/20 [Rx] [facility]ment(s[facility] [facility] [place] [place] [facility] [place] [facility] Patient Instructions/Handouts: Nutrition after Bariatric Surgery (DC), Lap aroscopic Sleeve Gastrectomy (DC) Activity/Diet/Wound Care/Special Instructions: No driving while taking Olds No lifting over 10 pounds You may shower. No soaking or tub baths for 2 weeks Very light activity until you are reevaluated at your follow up appointment with your surgeon no straws and no carbonated beverages Cut and crush all pills to smaller than the size of a tic tac Discharge Disposition: HOME SELF-CARE
--- NOTE | 2020-03-10 14:14 | P.PN ---
Subjective 19-year-old male with a known history of hypertension, asthma, GERD and obesity with BMI 37.3 was admitted to the hospital for elective sleeve gastrectomy. Patient had recent EGD showed gastritis, esophagitis and moderate hiatal hernia.Patient tolerated the procedure very well. Currently lying in the bed comfortably. No complaints of abdominal pain. Patient does have nausea. Currently nothing by mouth. No headache or dizziness or lightheadedness. No fever no chills. No complaints of shortness of breath. 03/08/2020 Patient is currently lying in the bed comfortably. Abdominal pain is better with pain medications. Does have nausea. No episodes of vomiting. No bowel movement. Patient does have bowel sounds and passing flatus occasionally. No fever no chills. No headache or dizziness or lightheadedness. No chest pain or shortness of the. Laboratory data showed WBC 13.1 and hemoglobin 11.4, BUN 7.0 and creatinine 0.5 and magnesium 1.6 03/09/2020 Patient states that she feels better today. No complaints of chest pain or tom rtness of breath. Some abdominal cramps and is passing flatus. No bowel movement today. Tolerating liquids. Pain is improved compared to yesterday. No other acute overnight issues. Laboratory data showed WBC 9.6 and hemoglobin 11.9 platelets 225 03/02/2020 Patient is doing much better and is not requiring any antidepressants medications blood pressure remains low normal. Patient was asked to maintain a diary for blood pressure readings for about a week and take it to PCP patient doesn't appear to have an essential hypertension will not require any antidepressants medications. Patient is being discharged today. Constitutional: Denied any fatigue denied any fever. Cardio vascular: denied any chest pain, palpitations Gastrointestinal denied any nausea vomiting Pulmonary: Denied any shortness of breath cough Neurologic denied any new focal deficits All inpatient medications were reviewed and appropriate changes in these medications as dictated in the interval history and assessment and plan. Objective - Vital Signs Vital signs: Vital Signs Temp 99.0 F 03/10/20 07:00 Pulse 88 03/10/20 12:22 Resp 16 03/10/20 08:10 BP 105/69 03/10/20 07:00 Pulse Ox 97 03/10/20 07:00 Intake & Output 03/09/20 03/10/20 03/10/20 18:59 06:59 18:59 Intake Total 915 1240 Balance 915 1240 Intake: Intake, IV Titration 915 1140 Amount 0.9% NaCl with KCl 20 Meq 1000 /l 1,000 ml @ 100 mls/hr IV .BY DURATION [facility] Rx#: [id number] Lactated Ringers 1,000 ml 140 @ 20 mls/hr IV .Q24H [facility] Rx#:[id number] Mvi, Adult No.4 with Vit 915 K 10 ml Thiamine 100 mg Folic Acid 1 mg Potassium Chloride 20 meq In Sodium Chloride 0.9% 1, 000 ml @ 100 mls/hr IV . BY DURATION [facility] Rx#: [id number] Oral 100 Other: Voiding Method Toilet # Voids 3 2 - Exam PHYSICAL EXAMINATION: GENERAL: The patient is alert and oriented x3, not in any acute distress. obese HEENT: Pupils are round and equally reacting to light. EOMI. No scleral icterus. No conjunctival pallor. Normocephalic, atraumatic. No pharyngeal erythema. No thyromegaly. CARDIOVASCULAR: S1 and S2 present. No murmurs, rubs, or gallops. PULMONARY: Chest is clear to auscultation, no wheezing or crackles. ABDOMEN: Soft, nontender, nondistended, normoactive bowel sounds. No palpable organomegaly. MUSCULOSKELETAL: No joint swelling or deformity. EXTREMITIES: No cyanosis, clubbing, or pedal edema. NEUROLOGICAL: Gross neurological examination did not reveal any focal deficits. SKIN: No rashes. - Labs CBC & Chem 7: 03/09/20 07:08 03/08/20 06:19 Assessment and Plan Plan: Status post gastric sleeve surgery postoperative day 3.patient is being discharged today in medically stable to discharge him patient education a consideration is reviewed. Hypomagnesia . Replaced Mild leukocytosis likely secondary to postsurgical Obesity with BMI 37.3 Asthma not in exacerbation GERD DVT prophylaxis.
== END 2020-03-10 14:19 | disposition home or self-care (01) | DRG 621 ==
LOC: 2ORMAIN 06:56 → 4SSUR 11:54
PROVIDERS: ADMIT Surgery; ATTEND Surgery
PROC: 0BQT4ZZ Repair Diaphragm, Percutaneous Endoscopic Approach (ICD-10-PCS; 2020-03-07)
PROC: 0DB64Z3 Excision of Stomach, Percutaneous Endoscopic Approach, Vertical (ICD-10-PCS; principal; 2020-03-07 09:00)
DX: E66.01 Morbid (severe) obesity due to excess calories (principal); K44.9 Diaphragmatic hernia without obstruction or gangrene; Z68.37 Body mass index [BMI] 37.0-37.9, adult; K21.9 Gastro-esophageal reflux disease without esophagitis; J45.909 Unspecified asthma, uncomplicated; I10 Essential (primary) hypertension; F41.9 Anxiety disorder, unspecified; D72.829 Elevated white blood cell count, unspecified; E83.42 Hypomagnesemia; E28.2 Polycystic ovarian syndrome; K20.9 Esophagitis, unspecified; R00.0 Tachycardia, unspecified; Z79.899 Other long term (current) drug therapy; Z91.048 Other nonmedicinal substance allergy status
CPT/HCPCS: 74240; 80051; 81025; 82310; 82565; 83735; 84100; 84520; 85025; 88307; 94640; 94760

== ENCOUNTER → 2020-03-18 | Outpatient (CLI) | payer OTHER ==
[2020-03-18 13:15] VITALS: BP 126/83; PULSE 99; RESP 16; TEMP 98.2; BMI 37.3
--- NOTE | 2020-03-18 16:06 | P.BASOAP ---
Subjective Progress Note Date: 03/18/20 Principal diagnosis: Morbid obesity Patient returns after recent sleeve gastrectomy on 03/07. Doing well. Denies pain. No dysphagia. Minimal reflux. She has good energy at this time. Heart rate today 99. She is afebrile. Tolerating adequate volumes of liquids and protein. Objective - Vital Signs Vital signs: Vital Signs Temp 98.2 F 03/18/20 13:13 Pulse 99 03/18/20 13:13 Resp 16 03/18/20 13:13 BP 126/83 03/18/20 13:13 Pulse Ox Intake & Output 03/17/20 03/18/20 03/18/20 18:59 06:59 18:59 Weight 97.069 kg - Exam Abdomen: Soft, nondistended, incisions clean and dry Assessment/Plan (1) Morbid obesity with BMI of 40.0-44.9, adult Narrative/Plan: Patient doing well at this time. States she did see bright red blood per rectum a few times.. She had this preoperatively as well. Sr. with history of polyps. She has been discussing this with her primary care physician. Continue postoperative bariatric diet. Monitor liquid and protein intake. Continue antiacids. Return visit 2-3 weeks. Plan: Date: 03/18/20 Initial Weight: 97.069 kg Initial BMI: 37.3 Current Weight: 97.069 kg Current BMI: 37.3 Type of Surgery: Total Volume in Band: Previous Volume: Volume Removed: Volume Added: Band Size:
== END | disposition home or self-care (01) ==
LOC: BARWHC3 12:44
PROVIDERS: ATTEND Surgery
DX: Z48.815 Encounter for surgical aftercare following surgery on the digestive system (principal); E66.01 Morbid (severe) obesity due to excess calories; Z68.41 Body mass index [BMI] 40.0-44.9, adult; Z98.84 Bariatric surgery status
CPT/HCPCS: 97803; G0463; 99211

== ENCOUNTER → 2020-04-08 | Outpatient (CLI) | payer OTHER ==
[2020-04-08 13:28] VITALS: BP 119/84; PULSE 74; TEMP 98.4; BMI 35.5
--- NOTE | 2020-04-08 14:20 | P.BASOAP ---
Subjective Progress Note Date: 04/08/20 Principal diagnosis: Morbid obesity Patient returns for reevaluation. Surgery for sleeve gastrectomy in 1 month ago. Had her wedding this past weekend that went well. Denies nausea vomiting. No reflux. Rare episodes of dysphagia. She has lost 10 pounds since last visit. She is due for one month labs. No further rectal bleeding. Objective - Vital Signs Vital signs: Vital Signs Temp 98.4 F 04/08/20 13:20 Pulse 74 04/08/20 13:20 Resp BP 119/84 04/08/20 13:20 Pulse Ox Intake & Output 04/07/20 04/08/20 04/08/20 18:59 06:59 18:59 Weight 92.533 kg - Exam Abdomen: Soft, nontender, nondistended Assessment/Plan (1) Morbid obesity with BMI of 40.0-44.9, adult Narrative/Plan: Patient doing well at this time. Continue postop dietary advancement. Gradually resume normal activities. Patient will be seen by dietitian today. Check one month labs. Patient without any further rectal bleeding. She will discuss the recent rectal bleeding with her primary care physician. Her sister has a history of colon polyps. Follow-up 4-6 weeks. Plan: Date: 04/08/20 Initial Weight: 97.069 kg Initial BMI: 37.3 Current Weight: 92.533 kg Current BMI: 35.5 Type of Surgery: Total Volume in Band: Previous Volume: Volume Removed: Volume Added: Band Size:
[2020-04-08 15:33] LABS: HCT 40.7 % (34.0-46.0); MCH 28.8 pg (25.0-35.0); MCHC 32.1 g/dL (31.0-37.0); MCV 89.8 fL (80.0-100.0); Mean Platelet Volume 9.6; Platelet Count 190 k/uL (150-450); RBC 4.53 m/uL (3.80-5.40); RDW 13.8 % (11.5-15.5); WBC 8.7 k/uL (3.8-10.6)
[2020-04-09 04:24] LABS: Albumin 4.4 g/dL (3.80-4.90); Albumin/Globulin Ratio 1.69 (1.60-3.17); Anion Gap 12.2 mmol/L (4.00-12.00); BUN/Creat Ratio 21.67 Ratio (12.00-20.00); Calcium 9.9 mg/dL (8.7-10.3); Carbon Dioxide 25.8 mmol/L (21.6-31.8); Globulin 2.6 g/dL (1.6-3.3); Non-African American GFR(CKD) 130.3 (60.0-200.0); Potassium 4.2 mmol/L (3.5-5.5); Total Bilirubin 0.3 mg/dL (0.2-1.2)
[2020-04-09 04:42] LABS: Folate, Serum 13.8 ng/mL
== END | disposition home or self-care (01) ==
LOC: BARWHC3 12:46
PROVIDERS: ATTEND Surgery
DX: Z48.815 Encounter for surgical aftercare following surgery on the digestive system (principal); K90.89 Other intestinal malabsorption; E55.9 Vitamin D deficiency, unspecified; E66.01 Morbid (severe) obesity due to excess calories; Z98.84 Bariatric surgery status; Z68.41 Body mass index [BMI] 40.0-44.9, adult
CPT/HCPCS: 84425; 80053; 82607; 82746; 83540; 85027; 82306; 97803; G0463; 99211

== ENCOUNTER → 2020-05-20 | Outpatient (CLI) | payer OTHER ==
[2020-05-20 15:22] VITALS: BP 122/75; PULSE 74; RESP 16; TEMP 98.2; BMI 33.1
--- NOTE | 2020-05-21 16:05 | PN ---
PROGRESS NOTE BARIATRIC PROGRESS NOTE: DATE OF SERVICE: 05/20/2020 CHIEF COMPLAINT: Morbid obesity. INTERVAL HISTORY: This patient is a 19-year-old female known to our service from sleeve gastrectomy on 03/07 of this year. The patient has lost 15 pounds since her last visit. No dysphagia. Small amount of heartburn at times. Her iron when checked last visit was low at 38. She denies rectal bleeding or melena. History of previous anemia and iron deficiency. No vomiting. On physical exam, her abdomen is soft, non-tender, non-distended. IMPRESSION/PLAN: This is a 19-year-old female doing well after sleeve gastrectomy. Begin supplemental iron. Continue multivitamins. Continue dietary and exercise regimen. Will check 3- month labs next visit. Follow up in 4 to 6 weeks. MMODL / IJN: [id number] /
== END | disposition home or self-care (01) ==
LOC: BARWHC3 13:49
PROVIDERS: ATTEND Surgery
DX: E66.01 Morbid (severe) obesity due to excess calories (principal); Z68.33 Body mass index [BMI] 33.0-33.9, adult
CPT/HCPCS: 97803; G0463; 99211

== ENCOUNTER → 2020-08-05 | Outpatient (CLI) | payer OTHER ==
[2020-08-05 15:02] VITALS: BP 125/81; PULSE 73; TEMP 97.5; BMI 30.8
--- NOTE | 2020-08-05 17:15 | P.BASOAP ---
Subjective Progress Note Date: 08/05/20 Principal diagnosis: Morbid obesity Patient returns for recheck. Last seen 05/21. Under 1 sleeve in February. He has lost 13 pounds since her last visit. Denies reflux. No nausea or vomiting. Has been exercising some at home. Taking omeprazole daily which is controlling her acid reflux. Objective - Vital Signs Vital signs: Vital Signs Temp 97.5 F L 08/05/20 15:00 Pulse 73 08/05/20 15:00 Resp BP 125/81 08/05/20 15:00 Pulse Ox Intake & Output 08/04/20 08/05/20 08/05/20 18:59 06:59 18:59 Weight 80.286 kg - Exam Abdomen: Soft, nontender, nondistended Assessment/Plan (1) Morbid obesity with BMI of 40.0-44.9, adult Narrative/Plan: Patient doing well at this time. Continue antiacid therapy. Continue dietary and exercise regimen. Follow-up 6 weeks. We'll check 6 month labs at that time. Plan: Date: 08/05/20 Initial Weight: 97.069 kg Initial BMI: 37.3 Current Weight: 80.286 kg Current BMI: 30.8 Type of Surgery: Total Volume in Band: Previous Volume: Volume Removed: Volume Added: Band Size:
== END | disposition home or self-care (01) ==
LOC: BARWHC3 13:36
PROVIDERS: ATTEND Surgery
DX: E66.01 Morbid (severe) obesity due to excess calories (principal); Z68.41 Body mass index [BMI] 40.0-44.9, adult
CPT/HCPCS: 99211

== ENCOUNTER → 2020-10-07 | Outpatient (CLI) | payer OTHER ==
[2020-10-07 13:19] VITALS: BP 143/83; PULSE 87; RESP 16; TEMP 98.3; BMI 29.1
[2020-10-07 14:40] LABS: HCT 40.1 % (34.0-46.0); HGB 14.1 gm/dL (11.4-16.0); MCHC 35.1 g/dL (31.0-37.0); MCV 88.4 fL (80.0-100.0); Platelet Count 188 k/uL (150-450); RBC 4.53 m/uL (3.80-5.40); RDW 12.1 % (11.5-15.5); WBC 8.5 k/uL (3.8-10.6)
--- NOTE | 2020-10-07 16:04 | P.BASOAP ---
Subjective Progress Note Date: 10/07/20 Principal diagnosis: Morbid obesity Patient returns for recheck. Doing well since last visit. She was last seen in July. She has lost 10 pounds since that time. She is due for 6 month labs. She is still on antiacids. She tried stopping her antiacids and had some heartburn. She was having some nausea a few weeks ago but that has resolved. No pain. Objective - Vital Signs Vital signs: Vital Signs Temp 98.3 F 10/07/20 13:16 Pulse 87 10/07/20 13:16 Resp 16 10/07/20 13:16 BP 143/83 10/07/20 13:16 Pulse Ox Intake & Output 10/06/20 10/07/20 10/07/20 18:59 06:59 18:59 Weight 75.75 kg - Exam Abdomen: Soft, nontender, nondistended - Labs CBC & Chem 7: 10/07/20 13:55 Assessment/Plan (1) Morbid obesity with BMI of 40.0-44.9, adult Narrative/Plan: Patient doing well at this time. Continue dietary and exercise regimen. We'll check 6 month labs. Follow-up 6-8 weeks. Try taking antiacids every other day. Plan: Date: 10/07/20 Initial Weight: 97.069 kg Initial BMI: 37.3 Current Weight: 75.75 kg Current BMI: 29.1 Type of Surgery: Total Volume in Band: Previous Volume: Volume Removed: Volume Added: Band Size:
[2020-10-08 13:19] LABS: ALT 28 U/L (8-44); AST 24 U/L (13-35); African American GFR (CKD) 142.5 (60.0-200.0); Albumin/Globulin Ratio 1.96 (1.60-3.17); Alkaline Phosphatase 71 U/L (41-126); BUN/Creat Ratio 17.14 Ratio (12.00-20.00); Calcium 10.3 mg/dL (8.7-10.3); Carbon Dioxide 20.7 mmol/L (21.6-31.8); Chloride 106 mmol/L (96-109); Globulin 2.4 g/dL (1.6-3.3); Glucose 92 mg/dL (70-110); Iron 107 ug/dL (50-170); Potassium 4.5 mmol/L (3.5-5.5); Sodium 141 mmol/L (135-145); Total Bilirubin 0.5 mg/dL (0.3-1.2); Total Protein 7.1 g/dL (6.2-8.2)
[2020-10-08 13:51] LABS: Folate, Serum >24.0 ng/mL
== END ==
LOC: BARWHC3 12:56
PROVIDERS: ATTEND Surgery
DX: E66.01 Morbid (severe) obesity due to excess calories (principal); R12 Heartburn; Z68.41 Body mass index [BMI] 40.0-44.9, adult
CPT/HCPCS: 84425; 80053; 82607; 82746; 83540; 85027; 82306; 97803; 36415; G0463; 99211

== ENCOUNTER → 2021-01-06 | Outpatient (CLI) | payer OTHER ==
[2021-01-06 13:50] VITALS: BP 141/85; PULSE 93; RESP 16; TEMP 98.4; BMI 27.1
--- NOTE | 2021-01-06 14:30 | P.BASOAP ---
Subjective Progress Note Date: 01/06/21 Principal diagnosis: Morbid obesity patient returns for reevaluation. Last seen in September. She had her 6 month labs drawn and those all looked normal. She is no longer taking her antiacids. She has lost 11 pounds since her last visit. She started increasing her exercise and is participating in a boot camp. Denies nausea or vomiting. No heartburn. Objective - Vital Signs Vital signs: Vital Signs Temp 98.4 F 01/06/21 13:48 Pulse 93 01/06/21 13:48 Resp 16 01/06/21 13:48 BP 141/85 01/06/21 13:48 Pulse Ox Intake & Output 01/05/21 01/06/21 01/06/21 18:59 06:59 18:59 Weight 70.76 kg - Exam Abdomen: Soft, nontender, nondistended Assessment/Plan (1) Morbid obesity with BMI of 40.0-44.9, adult Narrative/Plan: Patient doing well at this time. Continue dietary and exercise regimen. Return visit 2 months. We'll check 1 labs at that time. Plan: Date: 01/06/21 Initial Weight: 97.069 kg Initial BMI: 37.3 Current Weight: 70.76 kg Current BMI: 27.1 Type of Surgery: Total Volume in Band: Previous Volume: Volume Removed: Volume Added: Band Size:
== END ==
LOC: BARWHC3 13:38
PROVIDERS: ATTEND Surgery
DX: E66.01 Morbid (severe) obesity due to excess calories (principal); Z68.27 Body mass index [BMI] 27.0-27.9, adult; Z71.3 Dietary counseling and surveillance
CPT/HCPCS: 97803; G0463; 99211

== ENCOUNTER → 2021-03-10 | Outpatient (CLI) | payer OTHER ==
[2021-03-10 09:20] VITALS: BP 123/85; PULSE 71; TEMP 98.1; BMI 26.6
--- NOTE | 2021-03-10 09:20 | P.BASOAP ---
Subjective Progress Note Date: 03/10/21 Principal diagnosis: Morbid obesity Patient returns for recheck. She has 1 post sleeve gastrectomy. She has lost 3 pounds since last visit. Has rare episodes of reflux. She is not taking antiacids. No nausea or vomiting. No pain. No skin rashes. Patient is due for 1 labs today. Objective - Vital Signs Vital signs: Intake & Output 03/09/21 03/10/21 03/10/21 18:59 06:59 18:59 Weight 69.4 kg - Exam Abdomen: Soft, nontender, nondistended Assessment/Plan (1) Morbid obesity with BMI of 40.0-44.9, adult Narrative/Plan: Patient doing well at this time. Check 1 labs. Continue dietary and exercise regimen. Follow-up 6 months. Plan: Date: Initial Weight: 97.069 kg Initial BMI: Current Weight: 69.4 kg Current BMI: Type of Surgery: Total Volume in Band: Previous Volume: Volume Removed: Volume Added: Band Size:
[2021-03-10 10:22] LABS: HCT 36.9 % (34.0-46.0); HGB 12.6 gm/dL (11.4-16.0); MCH 31.9 pg (25.0-35.0); MCHC 34.1 g/dL (31.0-37.0); MCV 93.5 fL (80.0-100.0); Mean Platelet Volume 9.6; Platelet Count 163 k/uL (150-450); RBC 3.95 m/uL (3.80-5.40); RDW 12.5 % (11.5-15.5)
[2021-03-11 23:28] LABS: African American GFR (CKD) 138.7 (60.0-200.0); Albumin 4.5 g/dL (3.8-4.9); Albumin/Globulin Ratio 1.73 (1.60-3.17); Anion Gap 17.3 mmol/L (4.00-12.00); BUN/Creat Ratio 19.55 Ratio (12.00-20.00); Calcium 9.9 mg/dL (8.7-10.3); Carbon Dioxide 19.4 mmol/L (21.6-31.8); Globulin 2.6 g/dL (1.6-3.3); Non-African American GFR(CKD) 119.7 (60.0-200.0); Potassium 4.3 mmol/L (3.5-5.5); Total Bilirubin 0.3 mg/dL (0.30-1.20)
== END ==
LOC: BARWHC3 08:50
PROVIDERS: ATTEND Surgery
DX: E66.01 Morbid (severe) obesity due to excess calories (principal); Z68.41 Body mass index [BMI] 40.0-44.9, adult; Z98.84 Bariatric surgery status
CPT/HCPCS: 84425; 80053; 82607; 82746; 83540; 85027; 82306; G0463; 99211

== ENCOUNTER → 2021-08-11 | Outpatient (CLI) | payer OTHER ==
[2021-08-11 11:49] VITALS: BP 131/83; PULSE 78; RESP 16; TEMP 98.6; BMI 29.2
--- NOTE | 2021-08-11 13:35 | P.BASOAP ---
Subjective Progress Note Date: 08/11/21 Principal diagnosis: Morbid obesity Patient returns for bariatric follow-up. Doing well since last visit in February. Patient has gained 15 pounds but found out in April that she is . She is currently 21 weeks . Patient says she has significant nausea and some vomiting during the first trimester. Most of those symptoms have resolved. Mild GERD symptoms. Her asthma is worse. Objective - Vital Signs Vital signs: Vital Signs Temp 98.6 F 08/11/21 11:47 Pulse 78 08/11/21 11:47 Resp 16 08/11/21 11:47 BP 131/83 08/11/21 11:47 Pulse Ox Intake & Output 08/10/21 08/11/21 08/11/21 18:59 06:59 18:59 Weight 76.204 kg - Exam Abdomen: Soft, nontender, nondistended Assessment/Plan (1) Morbid obesity with BMI of 40.0-44.9, adult Narrative/Plan: Patient doing well at this time. Continue follow-up with obstetrics. Plan follow-up at 2 year anniversary in February. Plan: Date: 08/11/21 Initial Weight: 97.069 kg Initial BMI: 37.3 Current Weight: 76.204 kg Current BMI: 29.2 Type of Surgery: Vertical Sleeve Gastrectomy Total Volume in Band: Previous Volume: Volume Removed: Volume Added: Band Size:
== END ==
LOC: BARWHC3 11:36
PROVIDERS: ATTEND Surgery
DX: E66.01 Morbid (severe) obesity due to excess calories (principal); J45.909 Unspecified asthma, uncomplicated; Z68.29 Body mass index [BMI] 29.0-29.9, adult; Z79.51 Long term (current) use of inhaled steroids; Z91.09 Other allergy status, other than to drugs and biological substances
CPT/HCPCS: 99211

== ENCOUNTER → 2023-10-04 | Outpatient (CLI) | payer BC, OTHER ==
[2023-10-04 15:00] VITALS: BP 115/69; PULSE 84; RESP 16; TEMP 99; BMI 33.1
--- NOTE | 2023-10-04 16:33 | P.BASOAP ---
Subjective Progress Note Date: 10/04/23 Principal diagnosis: Morbid obesity 23-year-old female returns for recheck. Was last seen 1 year ago. Did not do her 1 year labs last year. She is again. She is currently 16 weeks . She has had 24 pound weight gain since her last visit. Not taking any antiacids. No nausea or vomiting. No GERD. Believes she is doing well. Objective - Vital Signs Vital signs: Vital Signs Temp 99 F 10/04/23 14:48 Pulse 84 10/04/23 14:48 Resp 16 10/04/23 14:48 BP 115/69 10/04/23 14:48 Pulse Ox FiO2 Intake & Output 10/03/23 10/04/23 10/04/23 18:59 06:59 18:59 Weight 86.183 kg - Exam Abdomen: Soft, nontender, nondistended Assessment/Plan (1) Morbid obesity with BMI of 40.0-44.9, adult Narrative/Plan: 23-year-old female doing well after previous sleeve gastrectomy. Some weight gain recently but likely related to . Continue to monitor for complaints of nausea vomiting or reflux. Continue dietary and exercise regimen. Follow-up 1 year. Check 1 year labs at this time. Plan: Date: 10/04/23 Initial Weight: 97.069 kg Initial BMI: 37.3 Current Weight: 86.183 kg Current BMI: 33.1 Type of Surgery: Vertical Sleeve Gastrectomy Total Volume in Band: Previous Volume: Volume Removed: Volume Added: Band Size:
== END ==
LOC: BARWHC3 14:05
PROVIDERS: ATTEND Surgery
DX: E66.01 Morbid (severe) obesity due to excess calories (principal); Z90.3 Acquired absence of stomach [part of]; Z68.33 Body mass index [BMI] 33.0-33.9, adult; Z91.048 Other nonmedicinal substance allergy status
CPT/HCPCS: 99211